=== PATIENT | male | born 1975 | race Caucasian/White ===

== ENCOUNTER 2021-04-21 06:54 | Emergency (ER) | payer OTHER ==
[~2021-04-21 06:54] MED LIST: FLEXERIL10 MG PO; GUMMI BEAR MUL1 EACH PO; IBUPROFEN800 MG PO; MEDROL 4MG DOSEP4 MG PO; NORCO 5-325 TA1 EACH PO
[2021-04-21 08:52] LABS: BASOPHIL 0.5 % (0-2); EOSINOPHIL 0.7 % (0-5); HCT 25.1 % (42.0-52.0); HGB 7.9 g/dl (13.2-18.0); LYMPHOCYTE 6.8 % (15-48); MCH 27.2 pg (25.0-31.0); MCHC 31.5 g/dL (32.0-36.0); MCV 86.6 fL (78.0-100.0); MONOCYTE 8.3 % (0-12); MPV 9.4 fL (6.0-9.5); NEUTROPHIL 83.2 % (41-80); NRBC 0; PLT 382 K/uL (150-400); RDW 14.9 % (11.5-14.0); WBC 9.2 K/uL (4.0-10.5)
[2021-04-21 09:03] LABS: INR 1.57 (0.9-1.2); PTT 52.7 SECONDS (24.4-34.7)
[2021-04-21 09:35] LABS: BUN/CREAT RATIO (CALC) 16.1 RATIO; CREATININE 1.74 mg/dL (0.67-1.17); POTASSIUM 4.4 mmol/L (3.5-5.1)
[2021-04-21 12:25] LABS: BILIRUBIN NEGATIVE (NEGATIVE); BLOOD 2+ Ery/uL (NEGATIVE); CLARITY CLEAR (CLEAR); COLOR YELLOW (YELLOW); GLUCOSE (U) NORMAL (NORMAL); LEUKOCYTES NEGATIVE Leu/uL (NEGATIVE); NITRITE NEGATIVE (NEGATIVE); PROTEIN NEGATIVE (NEGATIVE); UROBILINOGEN 0.2 mg/dL (0.2-1.0)
[2021-04-21 12:49] LABS: BACTERIA TRACE; SQUAMOUS EPITHELIAL CELLS RARE
[2021-04-21] MEDS ORDERED: HYDROCODON-ACE1 EAC2 PO (15:16)
== END 2021-04-21 15:33 | disposition home or self-care (01) ==
LOC: FER 06:54
PROVIDERS: Internal Medicine
DX: C34.90 Malignant neoplasm of unspecified part of unspecified bronchus or lung (principal); C79.00 Secondary malignant neoplasm of unspecified kidney and renal pelvis; D64.9 Anemia, unspecified; F17.210 Nicotine dependence, cigarettes, uncomplicated
CPT/HCPCS: 36415; 36430; 71250; 80048; 81001; 85025; 85610; 85730; 86850; 86900; 86901; 86922; 87076; 87088; 87186; J1170; J1642; J7050; P9016